=== PATIENT | female | born 1955 | race Asian ===

== ENCOUNTER 2016-12-10 10:14 | Inpatient (IN) | payer OTHER ==
[2016-12-10] VITALS (26 sets, daily range): BP systolic 130–201; BP diastolic 71–110; TEMP 97.4–98.5; Ht 157.5 cm; Wt 61.7 kg
[~2016-12-10] VITALS: Ht 157.5 cm; Wt 61.7 kg
[2016-12-10 11:24] LABS: PLATELET COUNT 285 K/uL (152-353)
[2016-12-10 11:26] LABS: POTASSIUM 3.4 mmol/L (3.6-5.2); SODIUM 136 mmol/L (136-145)
[2016-12-10] MEDS ORDERED: LISI20TA11 PO (16:48)
[2016-12-10] MEDS ORDERED: HYDR12.54 PO (16:49)
[2016-12-11] VITALS (14 sets, daily range): BP systolic 123–184; BP diastolic 69–92; TEMP 97.6–98.4
[2016-12-11 04:24] LABS: PLATELET COUNT 260 K/uL (152-353)
[2016-12-11 04:43] LABS: POTASSIUM 3.7 mmol/L (3.6-5.2); SODIUM 136 mmol/L (136-145)
[2016-12-12] VITALS: BP 123/65; TEMP 98.3
[2016-12-12 03:20] LABS: PARTIAL THROMBOPLASTIN TIME 71.6 SECONDS (24.5-33.6)
[2016-12-12 05:21] VITALS: BP 166/84; TEMP 98.8
[2016-12-12 08:06] VITALS: BP 144/79; TEMP 98
[2016-12-12 09:33] LABS: PLATELET COUNT 243 K/uL (152-353)
[2016-12-12 09:49] LABS: SODIUM 139 mmol/L (136-145)
[2016-12-12 12:00] VITALS: BP 147/82; TEMP 98.3
[2016-12-12 16:00] VITALS: BP 178/85; TEMP 98.3
[2016-12-12 20:00] VITALS: BP 151/84; TEMP 97.9
[2016-12-13] VITALS: BP 127/79; TEMP 97.9
[2016-12-13 02:41] LABS: PLATELET COUNT 217 K/uL (152-353)
[2016-12-13 03:11] LABS: POTASSIUM 3.6 mmol/L (3.6-5.2); SODIUM 137 mmol/L (136-145)
[2016-12-13 03:12] LABS: PARTIAL THROMBOPLASTIN TIME 84.1 SECONDS (24.5-33.6)
[2016-12-13 04:00] VITALS: BP 156/80; TEMP 97.9
[2016-12-13 07:54] VITALS: BP 164/81; TEMP 98.1
[2016-12-13 12:00] VITALS: BP 153/81; TEMP 97
== END 2016-12-13 14:49 | disposition home or self-care (01) | DRG 310 ==
LOC: ED 10:14 → ICU 12:50 → MED/SURG 12-11 12:30
PROVIDERS: Internal Medicine; ADMIT Specialist
DX: I48.91 Unspecified atrial fibrillation (principal); E05.80 Other thyrotoxicosis without thyrotoxic crisis or storm; E83.42 Hypomagnesemia; E87.6 Hypokalemia; I10 Essential (primary) hypertension
CPT/HCPCS: 36415; 80053; 82550; 82553; 83735; 83880; 84100; 84439; 84443; 84480; 84484; 85027; 85610; 85730; 93005; 93306; 94760; 96365; 96366; 96368; 96375; 96376; 99285; J1644; J3475; J3490

== ENCOUNTER 2021-09-13 10:31 | Day surgery (SDC) | payer OTHER ==
[2021-09-11 13:37] LABS: PLATELET COUNT 236 K/uL (152-353)
[2021-09-11 13:52] LABS: POTASSIUM 3.9 mmol/L (3.6-5.2)
[~2021-09-13] VITALS: Ht 152.4 cm; Wt 0.0 kg
[~2021-09-13 10:31] MED LIST: HYDR12.54 PO; LISI20TA11 PO
== END 2021-09-13 13:20 | disposition home or self-care (01) ==
LOC: OR 10:31
PROVIDERS: ATTEND Internal Medicine Gastroenterology
PROC: 0DBP8ZZ Excision of Rectum, Via Natural or Artificial Opening Endoscopic (ICD-10-PCS; principal; 2021-09-13)
PROC: 0DBL8ZZ Excision of Transverse Colon, Via Natural or Artificial Opening Endoscopic (ICD-10-PCS; 2021-09-13)
DX: D12.3 Benign neoplasm of transverse colon (principal); D12.8 Benign neoplasm of rectum; K57.30 Diverticulosis of large intestine without perforation or abscess without bleeding; K64.8 Other hemorrhoids; K92.2 Gastrointestinal hemorrhage, unspecified; Z12.11 Encounter for screening for malignant neoplasm of colon; Z20.822 Contact with and (suspected) exposure to COVID-19
CPT/HCPCS: 80053; 85027; 87635; J2704; U0003

== ENCOUNTER 2021-09-19 10:16 | Outpatient (CLI) | payer OTHER | END 2021-09-19 18:59 | disposition home or self-care (01) | LOC: RESP 10:16 | PROVIDERS: ATTEND Specialist | DX: G62.89 Other specified polyneuropathies (principal) | CPT/HCPCS: 95885; 95910 ==

== ENCOUNTER 2021-10-16 11:08 | Outpatient (CLI) | payer OTHER | END 2021-10-16 18:52 | disposition home or self-care (01) | LOC: LABW 11:08 | PROVIDERS: ATTEND Specialist | DX: R20.1 Hypoesthesia of skin (principal) | CPT/HCPCS: 36415; 82607; 82746; 83735; 85652; 86038 ==

== ENCOUNTER 2022-05-09 10:58 | Outpatient (CLI) | payer OTHER | END 2022-05-09 19:21 | disposition home or self-care (01) | LOC: LABW 10:58 | PROVIDERS: ATTEND Psychiatry & Neurology Neurology | DX: G58.8 Other specified mononeuropathies (principal); M54.42 Lumbago with sciatica, left side; M54.41 Lumbago with sciatica, right side; Z79.899 Other long term (current) drug therapy | CPT/HCPCS: 36415; 82607; 82746; 83036; 84207; 84443; 85652; 86038; 86334 ==

== ENCOUNTER 2022-08-24 12:52 | Outpatient (CLI) | payer OTHER ==
[2022-08-24 13:31] LABS: PLATELET COUNT 262 K/uL (152-353)
[2022-08-24 13:46] LABS: POTASSIUM 3.7 mmol/L (3.6-5.2)
== END 2022-08-24 20:35 | disposition home or self-care (01) ==
LOC: LABW 12:52
PROVIDERS: ATTEND Nurse Practitioner Family
DX: E55.9 Vitamin D deficiency, unspecified (principal); M06.4 Inflammatory polyarthropathy; M79.671 Pain in right foot; M79.672 Pain in left foot; R53.83 Other fatigue
CPT/HCPCS: 36415; 80053; 82306; 82607; 82784; 83921; 84550; 85027; 85652; 86038; 86140; 86160; 86200; 86431